=== PATIENT | male | born 1970 | race Caucasian/White ===

== ENCOUNTER 2018-01-26 00:25 | Emergency (ER) | END 2018-01-26 03:30 | disposition home or self-care (01) ==

== ENCOUNTER 2018-09-23 11:14 | Emergency (ER) | payer MEDICAID ==
[~2018-09-23] VITALS: Wt 79.0 kg
[2018-09-23] MEDS ORDERED: SOD CHLORIDE 0.9% 2,000 ML IV STA (12:29)
[2018-09-23] MEDS ORDERED: INSULIN LISPRO 100 UNIT/ML VIAL SC STA (12:29)
[2018-09-23] MEDS ORDERED: ACETAMINOPHEN 325 MG TAB PO ONE (12:30)
[2018-09-23] MEDS ORDERED: ACET500C5 PO (14:10)
[2018-09-23] MEDS ORDERED: METF-849 PO (14:10)
--- NOTE | 2018-09-23 14:14 | ERD ---
ER Documentation Chief Complaint Chief Complaint JUNE X 2 MOS HPI 48-year-old male presents with bitemporal headache for last 2 months. Patient states pain is 2 out of 10 without relieving or exacerbating factors. No radiation. Pain is dull. He denies a history of trauma. He also has an additional complaint of frequent urination, excessive thirst and approximately 10 pound weight loss. He denies previous evaluation for this. Denies history of diabetes. Denies fevers, vomiting, chest pain, shortness of breath, vomiting. ROS All systems reviewed and are negative except as per history of present illness. Medications Home Meds Active Scripts Metformin* (Glucophage*) 500 Mg Tab, 500 MG PO BID, #60 TAB Prov:NEGRITO SANDERSON MD 09/23/18 Acetaminophen* (Tylophen*) 500 Mg Capsule, 1 CAP PO Q6H PRN for PAIN AND OR ELEVATED TEMP, #20 CAP Prov:NEGRITO SANDERSON MD 09/23/18 Allergies Allergies: Coded Allergies: No Known Allergy (Unverified , 01/26/18) PMhx/Soc History of Surgery: No Anesthesia Reaction: No Hx Neurological Disorder: No Hx Respiratory Disorders: No Hx Cardiac Disorders: No Hx Psychiatric Problems: No Hx Miscellaneous Medical Probl: No Hx Alcohol Use: Yes (DAILY (LIQUOR)) Hx Substance Use: No Hx Tobacco Use: No Smoking Status: Never smoker FmHx Family History: No diabetes, No coronary disease, No other Physical Exam Vitals Vital Signs Date Temp Pulse Resp B/P (MAP) Pulse Ox O2 O2 Flow FiO2 Time Delivery Rate 09/23/18 97.1 88 20 120/68 99 Room Air 14:24 (85) 09/23/18 97.7 93 18 140/92 99 11:18 (108) Physical Exam Const: No acute distress Head: Atraumatic Eyes: Normal Conjunctiva and eyes Yash. ENT: Normal External Ears, Nose and Mouth. Neck: Full range of motion. No meningismus. Resp: Clear to auscultation bilaterally Cardio: Regular rate and rhythm, no murmurs Abd: Soft, non tender, non distended. Normal bowel sounds Skin: No petechiae or rashes Back: No midline or flank tenderness Ext: No cyanosis, or edema Neur: Awake and alert. No appreciable focal neurologic deficits. Psych: Normal Mood and Affect Result Diagram: 5/14/19 1245 09/23/18 1244 Results 24 hrs Laboratory Tests Test 09/23/18 12:20 09/23/18 12:21 09/23/18 12:44 09/23/18 12:45 Bedside Glucose 314 mg/dL Urine Color YELLOW Urine Clarity CLEAR Urine pH 5.0 Urine Specific 1.036 [place] Urine Ketones 2+ mg/dL Urine Nitrite NEGATIVE mg/dL Urine Bilirubin NEGATIVE mg/dL Urine NEGATIVE mg/dL Urobilinogen Urine Leukocyte NEGATIVE Nereida/ul Esterase Urine Hemoglobin NEGATIVE mg/dL Urine Glucose 3+ mg/dL Urine Total NEGATIVE mg/dl Protein Sodium Level 141 mmol/L Potassium Level 4.2 mmol/L Chloride Level 104 mmol/L Carbon Dioxide 22 mmol/L Level Anion Gap 15 Blood Urea 15 mg/dl Nitrogen Creatinine 0.59 mg/dl Est Glomerular > 60 mL/min Filtrat Rate mL/min Glucose Level 325 mg/dl Lactic Acid Level 1.3 mmol/L Calcium Level 9.9 mg/dl White Blood Count 5.9 10^3/ul Red Blood Count 5.41 10^6/ul Hemoglobin 16.3 g/dl Hematocrit 46.2 % Mean Corpuscular 85.4 fl Volume Mean Corpuscular 30.1 pg Hemoglobin Mean Corpuscular 35.3 g/dl Hemoglobin Concen t Red Cell 12.0 % Distribution Width Platelet Count 297 10^3/UL Mean Platelet 10.6 fl Volume Immature 0.200 % Granulocytes % Neutrophils % 67.3 % Lymphocytes % 24.7 % Monocytes % 6.0 % Eosinophils % 1.5 % Basophils % 0.3 % Nucleated Red 0.0 /100WBC Blood Cells % Immature 0.010 10^3/ul Granulocytes # Neutrophils # 4.0 10^3/ul Lymphocytes # 1.5 10^3/ul Monocytes # 0.4 10^3/ul Eosinophils # 0.1 10^3/ul Basophils # 0.0 10^3/ul Nucleated Red 0.0 10^3/ul Blood Cells # Test 09/23/18 14:21 Bedside Glucose 262 mg/dL Current Medications Medications Dose Sig/Brendon Start Time Status Last (Trade) Ordered Route PRN Stop Time Admin Dose Reason Admin Sodium 2,000 ml @ Q1H STAT 09/23/18 DC 09/23/18 Chloride 2,000 mls/hr IV 12:29 12:51 09/23/18 13:28 Insulin 8 unit ONCE STAT 09/23/18 DC 09/23/18 Human SC 12:29 12:50 Lispro 09/23/18 12:33 (Humalog) 650 mg ONCE ONCE 09/23/18 DC 09/23/18 Acetaminophen PO 12:30 12:50 (Tylenol 09/23/18 12:32 Tab) Procedures/MDM Accu-Chek is 314. Patient presents with signs of likely new onset diabetes. He has urine which shows ketones and is concentrated as well as glucose. IV was obtained. Patient was given 8 units Humalog subcutaneously, 2 L normal saline IV. CO2 is normal. Patient has slightly elevated anion gap. Patient was given Tylenol for headache. Patient presents with new onset diabetes without signs of ketoacidosis, sepsis, and a bitemporal headache likely sequela of dehydration or related to diabetes. Is no signs or symptoms to suggest neurologic deficit, meningitis, mass-effect, additional concerning signs or symptoms of emergent cause of headache. We will discharged home with recommendations for primary care follow-up. Will initiate Glucophage 500 mg twice a day and Tylenol for hea dache. He should return for fevers, vomiting, shortness chest pain, shortness of breath, new worsening symptoms. The patient was stable with no new complaints during the ER course. Clinically, there is no current evidence to suggest meningitis, sepsis, acute abdomen, pneumonia, stroke, acute coronary syndrome, pulmonary embolism, aortic dissection or any other emergent condition appearing to require further evaluation or hospitalization. Patient counseled regarding my diagnostic impression and care plan. Prior to discharge all questions answered. Pt agrees with treatment plan and understands strict return precautions. Pt is instructed to follow up with primary care provider within 24- 48 hours. Precautionary instructions provided including instructions to return to the ER if not improving or for any worsening or changing symptoms or concerns. Disclaimer: Inadvertent spelling and grammatical errors are likely due to EHR/dictation software use and do not reflect on the overall quality of patient care. Also, please note that the electronic time recorded on this note does not necessarily reflect the actual time of the patient encounter. Departure Diagnosis: Primary Impression: Hyperglycemia Additional Impression: Diabetes Diabetes mellitus type: type 2 Diabetes mellitus half-way insulin use: without bed bug exterminator use Diabetes mellitus complication status: with unspecified complications Qualified Codes: E11.8 - Type 2 diabetes mellitus with unspecified complications Condition: Stable Patient Instructions: Hyperglycemia (High Blood Sugar), DIABETES, General Info Referrals: [facility] Usted se june hecho un examen mdico de control que le indica que no est en lane condicin que requiera tratamiento urgente en el Departamento de Emergencia. Un estudio ms profundo y el tratamiento de sanches condicin pueden esperar sin ningn riesgo hasta que usted sea atendida/o en el consultorio de sanches mdico o lane clnica. Es responsabilidad suya arreglar lane rigo para el seguimiento del chun. MANEJO DE CONDICIONES NO URGENTES EN EL FUTURO 1) Si usted tiene un mdico de atencin primaria: Usted debera llamar a sanches mdico de atencin primaria antes de venir al departamento de emergencia. Despus de las horas de consultorio, sanches doctor o sanches asociado/a est disponible por telfono. El mdico o enfermero de yayo en el servicio telefnico puede asesorarle por uriel medio para atender el problema, o chun contrario se puede programar lane rigo. 2) Si usted no tiene un mdico de atencin primaria: Llame al mdico o clnica de referencia que aparece abajo geneva las horas de consultorio para hacer lane rigo para que le vean. CLINICAS: [facility] [phone] [id number] [facility] [phone] [facility] [phone] [address] [facility]. [facility] [phone] [facility] [phone] [id number] [facility]. [phone] [address] Additional Instructions: pattie diabetes. Cheque otro vez con sanches doctor primario en el proximo villegas or regresa para mas o nueva simptomas. NEGRITO SANDERSON MD September 23, 2018 14:14
[2018-09-23 14:24] VITALS: BP 120/68; PULSE 88; RESP 20
== END 2018-09-23 14:24 | disposition home or self-care (01) ==
LOC: FTE 11:14
DX: E11.65 Type 2 diabetes mellitus with hyperglycemia (principal)
CPT/HCPCS: 36415; 80048; 81003; 82962; 83605; 85025; 96372; J1815; J7030; Z7502; Z7610